=== PATIENT | male | born 1995 | race Asian ===

== ENCOUNTER 2016-07-21 11:48 | Emergency (ER) | payer BC ==
[~2016-07-21] VITALS: Ht 172.7 cm; Wt 74.0 kg
[2016-07-21 11:58] VITALS: TEMP 36.9; Ht 172.7 cm; Wt 74.0 kg
[2016-07-21] MEDS ORDERED: LISI-461 PO (12:22)
--- NOTE | 2016-07-21 12:35 | DIAGNOSTIC IMAGING REPORT ---
CHEST ONE VIEW PORTABLE CLINICAL HISTORY: Atypical chest pain COMPARISON STUDY: No previous studies for comparison. FINDINGS: The cardiac and mediastinal contours are normal. There is no evidence of focal pulmonary consolidation. There is no evidence of failure. No pleural effusions are visualized.[ IMPRESSION: No active disease in the chest. Electronically signed by: Sean Covarrubias M.D. 07/21/2016 12:33 PM Dictated Date/Time: 07/21/2016 12:33 PM
[2016-07-21 12:57] LABS: BASO % 1.2 %; BASO ABS # 0.08 K/uL (0-0.2); COMPLETE YES; EOS % 1.9 %; HEMATOCRIT 43.6 % (42-52); IG% 0.3 %; LYMPH % 19.6 %; LYMPH ABS # 1.36 K/uL (1.2-3.4); MEAN CELL VOLUME 83.4 fL (80-100); MEAN CORPUSCULAR HEMOGLOBIN 29.1 pg (25-34); MEAN CORPUSCULAR HGB CONC 34.9 g/dl (32-36); MEAN PLATELET VOLUME 11.2 fL (7.4-10.4); MONO % 7.8 %; NEUT % 69.2 %; PLATELET COUNT 207 K/uL (130-400); RED BLOOD COUNT 5.23 M/uL (4.7-6.1); WHITE BLOOD COUNT 6.95 K/uL (4.8-10.8)
[2016-07-21 13:19] LABS: BLOOD UREA NITROGEN 13 mg/dl (7-18); BUN/CREATININE RATIO 11.8 (10-20); CALCIUM 8.9 mg/dl (8.5-10.1); CARBON DIOXIDE 30 mmol/L (21-32); CHLORIDE 104 mmol/L (98-107); GLUCOSE 92 mg/dl (70-99); POTASSIUM 4.1 mmol/L (3.5-5.1); SODIUM 141 mmol/L (136-145)
[2016-07-21 13:34] LABS: CKMB/CK RATIO 0.1 (0-3.0)
[2016-07-21 14:05] VITALS: BP 144/79; PULSE 60; O2SAT 100
--- NOTE | 2016-07-21 17:25 | EMERGENCY ROOM VISIT NOTE ---
History Report prepared by Kailey: Steven Ritchie Under the Supervision of: Dr. Miguel Weber D.O. First contact with patient: 12:01 Chief Complaint: SHORTNESS OF BREATH Stated Complaint: SOB, TIGHTNESS/PRESSURE IN THROAT,LIGHT HEADED Nursing Triage Summary: Pt sent by [facility]. Pt reports SOB x 1.5 days, tightness in throat. Pt states used cocaine for the first time on Sat. Took "1/4 of a 20mg Adderall today." History of Present Illness The patient is a 21 year old male who presents to the Emergency Room with complaints of improving intermittent shortness of breath for the past one and a half days. The patient states that he took some cocaine two nights ago, and he started to feel very bad, and he felt short of breath like he had a pressure in his throat making it difficult to breathe. He states that that night and yesterday it was much worse. He additionally states that he had a headache, low energy, and his mouth is dry. He denies any swelling in his legs, coughing up blood, recent long trips or surgery, history of blood clots, history of cancer, history of cancer, and high cholesterol. He states that he has hypertension, and he takes lisinopril, however not regularly. He additionally denies any asthma or COPD. Additionally, he states that he took 5mg of Adderall this morning because he has an exam today. The patient states that he has not done cocaine or Adderall very much recently. Pt denies change in vision, fevers, chest pain, nausea, vomiting, diarrhea, pain with urination, and melena. Source of History: patient Onset: one and a half days ago Position: other (global) Quality: other (shortness of breath) Timing: intermittent, other (improving) Associated Symptoms: + fatigue, + headache, No chest pain Note: Associated symptoms: Dry mouth Review of Systems See HPI for pertinent positives & negatives. A total of 10 systems reviewed and were otherwise negative. Past Medical & Surgical Medical Problems: (1) Hypertension Social History Smoking Status: Never Smoker Drug Use: cocaine Marital Status: single Housing Status: lives with roommate Occupation Status: [employer] student Current/Historical Medications Scheduled Lisinopril (Zestril), 10 MG PO QPM Allergies Coded Allergies: No Known Allergies (Unverified , 07/21/16) Physical Exam Vital Signs Date Time Temp Pulse Resp B/P Pulse Ox O2 Delivery O2 Flow Rate FiO2 07/21/16 14:05 60 18 144/79 100 07/21/16 11:58 36.9 62 18 155/107 96 Room Air Physical Exam GENERAL: Sitting up in bed, alert, well appearing, well nourished, no distress, non-toxic EYE EXAM: normal conjunctiva OROPHARYNX: no exudate, no erythema, lips, buccal mucosa, and tongue normal and mucous membranes are moist NECK: supple, no nuchal rigidity, no adenopathy, non-tender LUNGS: Clear to auscultation. Normal chest wall mechanics HEART: no murmurs, S1 normal and S2 normal ABDOMEN: abdomen soft, non-tender, normo-active bowel sounds, no masses, no rebound or guarding. BACK: Back is symmetrical on inspection and there is no deformity, no midline tenderness, no CVA tenderness. SKIN: no rashes and no bruising UPPER EXTREMITIES: upper extremities are grossly normal. LOWER EXTREMITIES: Calves are equal bilaterally. No pitting edema. NEURO EXAM: Normal sensorium, cranial nerves II-XII grossly intact, normal speech, no gross weakness of arms, no gross weakness of legs. Gross sensation intact. Medical Decision & Procedures ER Provider Diagnostic Interpretation: Xray results per the radiologist and my interpretation. CHEST ONE VIEW PORTABLE CLINICAL HISTORY: Atypical chest pain COMPARISON STUDY: No previous studies for comparison. FINDINGS: The cardiac and mediastinal contours are normal. There is no evidence of focal pulmonary consolidation. There is no evidence of failure. No pleural effusions are visualized.[ IMPRESSION: No active disease in the chest. Electronically signed by: Sean Covarrubias M.D. 07/21/2016 12:33 PM Dictated Date/Time: 07/21/2016 12:33 PM Laboratory Results 07/21/16 12:30 Red Blood Count 5.23, Mean Corpuscular Volume 83.4, Mean Corpuscular Hemoglobin 29.1, Mean Corpuscular Hemoglobin Concent 34.9, Mean Platelet Volume 11.2, Neutrophils (%) (Auto) 69.2, Lymphocytes (%) (Auto) 19.6, Monocytes (%) (Auto) 7.8, Eosinophils (%) (Auto) 1.9, Basophils (%) (Auto) 1.2, Neutrophils # (Auto) 4.82, Lymphocytes # (Auto) 1.36, Monocytes # (Auto) 0.54, Eosinophils # (Auto) 0.13, Basophils # (Auto) 0.08 07/21/16 12:30 Test 07/21/16 12:30 White Blood Count 6.95 K/uL (4.8-10.8) Red Blood Count 5.23 M/uL (4.7-6.1) Hemoglobin 15.2 g/dL (14.0-18.0) Hematocrit 43.6 % (42-52) Mean Corpuscular Volume 83.4 fL (80-100) Mean Corpuscular Hemoglobin 29.1 pg (25-34) Mean Corpuscular Hemoglobin Concent 34.9 g/dl (32-36) Platelet Count 207 K/uL (130-400) Mean Platelet Volume 11.2 fL (7.4-10.4) Neutrophils (%) (Auto) 69.2 % Lymphocytes (%) (Auto) 19.6 % Monocytes (%) (Auto) 7.8 % Eosinophils (%) (Auto) 1.9 % Basophils (%) (Auto) 1.2 % Neutrophils # (Auto) 4.82 K/uL (1.4-6.5) Lymphocytes # (Auto) 1.36 K/uL (1.2-3.4) Monocytes # (Auto) 0.54 K/uL (0.11-0.59) Eosinophils # (Auto) 0.13 K/uL (0-0.5) Basophils # (Auto) 0.08 K/uL (0-0.2) RDW Standard Deviation 40.9 fL (36.4-46.3) RDW Coefficient of Variation 13.4 % (11.5-14.5) Immature Granulocyte % (Auto) 0.3 % Immature Granulocyte # (Auto) 0.02 K/uL (0.00-0.02) D-Dimer 320 ug/L FEU (0-500) Anion Gap 7.0 mmol/L (3-11) Est Creatinine Clear Calc Drug Dose 102.7 ml/min Estimated GFR () 110.6 Estimated GFR (Non- 95.5 BUN/Creatinine Ratio 11.8 (10-20) Calcium Level 8.9 mg/dl (8.5-10.1) Total Creatine Kinase 1261 U/L (39-308) Creatine Kinase MB 1.3 ng/ml (0.5-3.6) Creatine Kinase MB Ratio 0.1 (0-3.0) Troponin I < 0.015 ng/ml (0-0.045) Laboratory results per my review. ECG Indication: SOB/dyspnea Rate (beats per minute): 60 Rhythm: sinus rhythm Findings: other (Diffuse J Point elevation and normal axis) ED Course ED COURSE: Vital signs were reviewed and showed hypertension The patients medical record was reviewed The above diagnostic studies were performed and reviewed. ED treatments and interventions as stated above. 1201: The patient was evaluated in room B4. A complete history and physical examination was performed. 1355: Upon reevaluation, the patient is feeling better.I discussed my findings with the patient and he understands and agrees with the treatment plan. Based on the patients age, coexisting illnesses, exam and lab findings the decision to treat as an outpatient was made. The patient remained stable while under my care. The patient appeared well at the time of discharge. Medical Decision Differential diagnoses includes but is not limited to pneumonia, bronchitis, COPD/Asthma exacerbation, pneumothorax, pulmonary embolism, congestive heart failure, acute coronary syndrome Patient is a 21-year-old male who presents the ER referred in by [facility] for abnormal EKG. Patient admits to using cocaine over the weekend in combination with Adderall today. He notes he did have some shortness of breath when he used cocaine on Thursday but this has been dissipating. He has no cardiac risk factors with the exception of hypertension. He denies any swelling of calves, coughing up blood, recent trips , recent surgeries, history of cancer, or previous blood clots. D-dimer was negative. Troponin was negative. EKG shows ST segment elevation in the inferior anterior and lateral leads suggesting J-point elevation. He has no chest pain his shortness of breath has resolved. Patient was updated bedside and discharged to follow-up with [facility]. I instructed him to stop all other medications and drugs. Discussed with Pt concerning signs and symptoms to watch out for. Pt was instructed to follow up with their PCP and discussed with the patient their option to return to the ED at anytime for persistent or worsening symptoms. The appropriate anticipatory guidance and out-patient management, including indications for return to the emergency department, were explained at length to the patient and understood. Impression Primary Impression: Drug abuse Additional Impressions: Shortness of breath Hypertension Scribe Attestation The scribe's documentation has been prepared under my direction and personally reviewed by me in its entirety. I confirm that the note above accurately reflects all work, treatment, procedures, and medical decision making performed by me. Departure Information Dispostion Home / Self-Care Referrals No Doctor, Assigned (PCP) Forms HOME CARE DOCUMENTATION FORM, IMPORTANT VISIT INFORMATION Patient Instructions ED Drug Abuse General, ED Dyspnea Shortness of Breath, My [facility] Additional Instructions Please follow up with your primary care doctor or if you are a student [facility] with in the next 24 hours. Any worsening of your symptoms, please return to the ED immediately. This includes passing out, new shortness of breath, chest pain, or any other concerning signs or symptoms from your standpoint. Please stop using cocaine and Adderall. You should also restart your lisinopril. Please have your blood pressure followed up on by your primary care doctor. Problem Qualifiers Additional Impressions: Hypertension Hypertension type: essential hypertension Qualified Codes: I10 - Essential ( primary) hypertension
== END 2016-07-21 14:10 | disposition home or self-care (01) ==
LOC: C.EDB 11:52
DX: F19.10 Other psychoactive substance abuse, uncomplicated (principal); R06.02 Shortness of breath; I10 Essential (primary) hypertension